=== PATIENT | male | born 1995 | race Caucasian/White ===

== ENCOUNTER 2019-01-01 07:02 | Day surgery (SDC) | payer BC ==
[~2019-01-01] VITALS: Ht 180.3 cm; Wt 73.0 kg
[2019-01-01 07:59] VITALS: BP 136/86; PULSE 105; TEMP 98
[2019-01-01] MEDS ORDERED: PERCOCET 325 MG1 TA2 PO (10:12)
[2019-01-01] MEDS ORDERED: MOTRIN 600600 MG/TAB PO (10:12)
[2019-01-01] MEDS ORDERED: GOOD NEIGH3.4 GM/Dos PO (10:13)
[2019-01-01] MEDS ORDERED: COLACE 100100 MG/CAP PO (10:13)
[2019-01-01 10:26] VITALS: TEMP 99.4
[2019-01-01 10:35] VITALS: BP 135/70; PULSE 97
--- NOTE | 2019-01-01 10:35 | NUR ---
Patient returns to room 1 per cart from PACU and is awake and alert. Temp 97.4 and room air sats 98%. IV fluids infusing and site is free of redness. 4x4 gauze dressing dry and mesh panties holding dressing in place. Denies pain or nausea. Taking chocolate pudding and sipping on Cola.
[2019-01-01 10:50] VITALS: BP 130/75; PULSE 101
--- NOTE | 2019-01-01 10:50 | NUR ---
Room air sats 98%. Tolerates pudding and cola.
[2019-01-01 11:05] VITALS: BP 127/71; PULSE 100
--- NOTE | 2019-01-01 11:05 | NUR ---
Room air sats 98%. IV fluids infusing.
[2019-01-01 11:20] VITALS: BP 114/64; PULSE 86
--- NOTE | 2019-01-01 11:20 | NUR ---
Continues to deny pain or nausea. Family in room.
--- NOTE | 2019-01-01 11:46 | NUR ---
IV discontinued and given dismissal instructions. Voices understanding of home cares and follow up as scheduled. Provided scritps for pain medication and constipation. Given sitz bath to use as directed. Assisted across the hallway and is able to void. Tolerates activity well.
--- NOTE | 2019-01-01 11:50 | NUR ---
Patient dismissed to home per private vehilce driven by family and assisted into car by RN with instructions in hand.
== END 2019-01-01 11:50 | disposition home or self-care (01) ==
LOC: SDCO 07:02
DX: A63.0 Anogenital (venereal) warts (principal)
CPT/HCPCS: J0690; J1100; J1885; J2250; J2405; J2704; J3010; J7120